=== PATIENT | female | born 1950 | race Caucasian/White ===

== ENCOUNTER 2019-12-01 10:11 | Day surgery (SDC) | payer MEDICARE, MEDICAID ==
[~2019-12-01] VITALS: Ht 177.8 cm; Wt 146.8 kg
[2019-12-01 10:24] VITALS: BP 138/67
[2019-12-01] MEDS ORDERED: IBUPROFEN PO (10:56)
[2019-12-01] MEDS ORDERED: ACET-75 PO (10:58)
[2019-12-01] MEDS ORDERED: FURO-149 PO (11:10)
[2019-12-01] MEDS ORDERED: MIDAZolam 5mg/5ml vial ONE (11:10)
[2019-12-01] MEDS ORDERED: fentaNYL/PF 50MCG/1 ML 2ML syringe ONE (11:10)
[2019-12-01] MEDS ORDERED: LIDOcaine Viscous 15ml cup ONE (11:10)
[2019-12-01] MEDS ORDERED: POTA10TA19 PO (11:11)
[2019-12-01] MEDS ORDERED: TRELEGY ELLIPTA INH (11:12)
[2019-12-01] MEDS ORDERED: VIT1CAPS46 PO (11:13)
[2019-12-01] MEDS ORDERED: CHOL400C8 PO (11:15)
[2019-12-01 12:30] VITALS: BP 125/66
[2019-12-01 12:40] VITALS: BP 134/92
[2019-12-01 12:50] VITALS: BP 128/75
[2019-12-01 13:00] VITALS: BP 125/69
== END 2019-12-01 13:24 | disposition home or self-care (01) ==
LOC: GI LAB 10:11
PROVIDERS: ATTEND Internal Medicine
DX: K62.5 Hemorrhage of anus and rectum (principal); R12 Heartburn; K63.5 Polyp of colon; K44.9 Diaphragmatic hernia without obstruction or gangrene; K21.0 Gastro-esophageal reflux disease with esophagitis; K22.8 Other specified diseases of esophagus; K64.4 Residual hemorrhoidal skin tags; K57.30 Diverticulosis of large intestine without perforation or abscess without bleeding; J44.9 Chronic obstructive pulmonary disease, unspecified
CPT/HCPCS: 43239; 45380; 99153; G0500; J2250; J3010; J7040; 45385; 99152; A4620